=== PATIENT | female | born 1940 | race Caucasian/White ===

== ENCOUNTER 2022-02-07 15:47 | Emergency (ER) | payer OTHER, MEDICARE ==
[~2022-02-07] VITALS: Ht 165 cm; Wt 72.0 kg
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
[2022-02-07] MEDS ORDERED: TETANUS,DIPTH,PERTUSS P/F (BOOSTRIX) 0.5 ML VIAL IM ONE (16:30)
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
[2022-02-07] MEDS ORDERED: KETOROLAC 60 MG/2 ML VIAL IM ONE (17:30)
--- NOTE | 2022-02-07 17:45 | Diagnostic Imaging Report ---
INDICATION: Bilateral rib pain. TECHNIQUE: Single view chest along with 4 views of the ribs. CORRELATION STUDY: None FINDINGS: Heart size, mediastinum, and vasculature overall slightly prominent. There is mildly prominent interstitial markings. No infiltrate, effusion or evidence for pneumothorax. There is no evidence for an acute displaced rib fracture in the visualized areas. IMPRESSION: 1. Suggestion of mild edema. 2. Negative for acute displaced rib fracture. Dictated by: Dictated on workstation # [id number]
--- NOTE | 2022-02-07 17:46 | Diagnostic Imaging Report ---
INDICATION: Pelvic pain. FINDINGS: AP pelvis and two-view bilateral hips performed. There are degenerative changes to the symphysis and SI joints. There are arthritic changes to the bilateral hips. No bony avulsion or other fracture pattern, however. There is no dislocation. No displacement of the visualized pelvic viscus. IMPRESSION: Chronic degenerative changes, but no acute appearing abnormality apparent. Dictated by: Dictated on workstation # [id number]
[2022-02-07] MEDS ORDERED: CYCL5TAB PO (18:01)
[2022-02-07 18:23] VITALS: BP 142/79
== END 2022-02-07 18:23 | disposition home or self-care (01) ==
LOC: ER 15:53
DX: S61.401A Unspecified open wound of right hand, initial encounter (principal); S61.204A Unspecified open wound of right ring finger without damage to nail, initial encounter; S01.111A Laceration without foreign body of right eyelid and periocular area, initial encounter; S60.221A Contusion of right hand, initial encounter; Z23 Encounter for immunization; V49.40XA Driver injured in collision with unspecified motor vehicles in traffic accident, initial encounter; Y92.410 Unspecified street and highway as the place of occurrence of the external cause
CPT/HCPCS: 70450; 71111; 72125; 73110; 73523; 90715

== ENCOUNTER → 2022-05-10 | Outpatient (CLI) | payer MEDICARE ==
[~2022-05-10] MED LIST: CYCL5TAB PO
--- NOTE | 2022-05-10 16:33 | Diagnostic Imaging Report ---
EXAM: Forearm, right, 2 views INDICATION: Right forearm pain. COMPARISON: None. FINDINGS: No fracture or malalignment. Soft tissue shadows are unremarkable. IMPRESSION: No acute radiographic finding in the right forearm. Dictated by: Dictated on workstation # [id number]
--- NOTE | 2022-05-10 16:36 | Diagnostic Imaging Report ---
INDICATION: Right hand and forearm pain. TECHNIQUE: Three views of the right hand. CORRELATION STUDY: None. FINDINGS: No acute fracture or dislocation. Mild degenerative changes through the interphalangeal joint most pronounced at the 3rd distal interphalangeal joint. Metacarpophalangeal joints demonstrate no acute finding. There is mild calcification, particularly at the 3rd and 2nd MCP joints. There is advanced degenerative change of the carpal bones. Narrowing at the radiocarpal row with cystic change at the radial styloid. There is narrowing at the 1st carpometacarpal articulation with joint space osteophyte formation and sclerosis. Calcification of the triangular fibrocartilage complex. Soft tissues are unremarkable. IMPRESSION: Negative for acute bony abnormality of the hand. Advanced multicompartment degenerative change. Most pronounced in the wrist and base of the thumb. Dictated by: Dictated on workstation # [id number]
== END ==
LOC: RAD 15:51
PROVIDERS: ATTEND Nurse Practitioner Family
DX: M79.641 Pain in right hand (principal); M79.631 Pain in right forearm
CPT/HCPCS: 73090; 73130